=== PATIENT | male | born 1985 | race Caucasian/White ===

== ENCOUNTER 2017-08-25 17:55 | Emergency (ER) | payer SELFPAY ==
[2017-08-25] MEDS: FLUORESCEIN STRIP RIGHT EYE (22:10)
[2017-08-25] MEDS: PROPARACAINE 0.5% 15 ML OPH BOTH EYES (22:10)
== END 2017-08-25 22:13 | disposition home or self-care (01) ==
LOC: FTE 17:55
DX: T15.01XA Foreign body in cornea, right eye, initial encounter (principal); E11.9 Type 2 diabetes mellitus without complications; F17.210 Nicotine dependence, cigarettes, uncomplicated; H16.011 Central corneal ulcer, right eye; X58.XXXA Exposure to other specified factors, initial encounter; Y92.9 Unspecified place or not applicable
CPT/HCPCS: 65222; 99283-25

== ENCOUNTER 2017-08-26 01:35 | Emergency (ER) | payer SELFPAY ==
[2017-08-26] MEDS: ONDANSETRON (ODT) 4 MG TAB ODT (02:40)
[2017-08-26] MEDS: OXYCODONE/ACETAMINOPHEN (5/325) TAB PO (02:41)
[2017-08-26] MEDS: TETRACAINE 0.5% 4 ML OPH RIGHT EYE (02:42)
[2017-08-26] MEDS: FLUORESCEIN STRIP RIGHT EYE (02:42)
== END 2017-08-26 04:48 | disposition home or self-care (01) ==
LOC: FTE 01:35
DX: H16.001 Unspecified corneal ulcer, right eye (principal); E11.9 Type 2 diabetes mellitus without complications; F17.210 Nicotine dependence, cigarettes, uncomplicated
CPT/HCPCS: 70480; 99284-25

== ENCOUNTER 2018-04-17 09:46 | Emergency (ER) | payer SELFPAY ==
[2018-04-17] MEDS: IBUPROFEN 800 MG TAB PO (10:24)
[2018-04-17] MEDS ORDERED: TETRACAINE 0.5% 4 ML OPH RIGHT EYE (10:30)
[2018-04-17] MEDS ORDERED: FLUORESCEIN STRIP RIGHT EYE (10:30)
[2018-04-17] MEDS: BENOXINATE/FLUORESCEIN DROPS RIGHT EYE (10:37)
== END 2018-04-17 11:20 | disposition home or self-care (01) ==
LOC: FTE 09:46
DX: H57.11 Ocular pain, right eye (principal); E11.9 Type 2 diabetes mellitus without complications; F17.210 Nicotine dependence, cigarettes, uncomplicated
CPT/HCPCS: 99283